=== PATIENT | female | born 1980 | race American Indian/Alaskan Native ===

== ENCOUNTER 2017-06-05 09:46 | Emergency (ER) | payer MEDICAID ==
[2017-06-05 10:10] VITALS: BP 101/73
== END 2017-06-05 13:37 | disposition left against medical advice (07) ==
LOC: ED 09:46
DX: J02.9 Acute pharyngitis, unspecified (principal); H92.09 Otalgia, unspecified ear; Z53.21 Procedure and treatment not carried out due to patient leaving prior to being seen by health care provider
CPT/HCPCS: 82962; 93005; 93010

== ENCOUNTER 2020-10-30 12:58 | Emergency (ER) | payer MEDICAID ==
[2020-10-30 14:46] VITALS: BP 178/118
== END 2020-10-30 19:00 | disposition left against medical advice (07) ==
LOC: ED 12:58
DX: M54.6 Pain in thoracic spine (principal); Z53.21 Procedure and treatment not carried out due to patient leaving prior to being seen by health care provider